=== PATIENT | male | born 1990 | race Caucasian/White ===

== ENCOUNTER 2017-12-01 20:21 | Observation (INO) | payer OTHER ==
[2017-12-01] MEDS ORDERED: Ketorolac INJ* 60 MG/2 ML VIAL ONE (20:45)
[2017-12-01] MEDS ORDERED: Ketorolac INJ* 60 MG/2 ML VIAL IM ONE (20:49)
[2017-12-01 21:48] LABS: ABS Basophils 0 10^3/ul (0-0.2); ABS Eosinophils 0 10^3/ul (0-0.6); ABS Lymphocytes 1.1 10^3/ul (1.0-4.8); ABS Monocytes 0.6 10^3/ul (0-0.8); ABS Neutrophils 8.9 10^3/ul (1.5-7.7); ABS Nucleated RBC 0 10^3/ul; Eosinophil % 0.4 % (0-6); Hematocrit 42 % (42-52); Hemoglobin 14.8 g/dl (14.0-18.0); Lymphocyte % 10.4 % (25-47); Mean Corpuscular HGB Conc 35 g/dl (31-36); Mean Corpuscular Hemoglobin 31 pg (27-31); Mean Corpuscular Volume 88 fL (80-94); Mean Platelet Volume 8.6 um3 (7.4-10.4); Nucleated Red Blood Cells % 0; Platelet Count 184 10^3/ul (150-450); Red Blood Count 4.74 10^6/ul (4.00-5.40); Red Cell Distribution Width 13 % (10.5-15); White Blood Count 10.8 10^3/ul (3.5-10.8)
[2017-12-01 22:04] LABS: EGFR Non-African American 72.5 (>60)
[2017-12-01] MEDS ORDERED: Iohexol 300* (CONTRAST) 10 ML SDV IV ONE (22:08)
--- NOTE | 2017-12-01 22:40 | ED ---
Abdominal Pain/Male - HPI Summary HPI Summary: 27 y/o male c/o severe ABD pain starting at 11:00, starting at the navel moving down to the right. Currently the pain is at a 7-8/10 Associated sx: nausea, lightheadedness, mild testicular pain, mild back pain, currently mild at a 2-3. At ED pain level at 8/10 initially, increased to 10/10 30 minutes after. Pt had a previous episode in Apr 2017 while pt was in [place]. Since that episode the pt c/o mild lower R side ABD pain intermittently, from 2-6/10 in severity. Pt states this episode is more severe than his previous. Last BM 19:50 today, solid stool. - History of Current Complaint Chief Complaint: EDAbdPain Stated Complaint: ABD PAIN/BELLY BUTTON AREA Time Seen by Provider: 12/01/17 21:55 Hx Obtained From: Patient Onset/Duration: Sudden Onset, Lasting Hours, Still Present Timing: Constant Severity Initially: Severe Severity Currently: Severe Pain Intensity: 8 Pain Scale Used: 0-10 Numeric Location: Discrete At: RLQ, Umbilical Radiates: Yes Radiates to: RLQ Aggravating Factor(s): Nothing Alleviating Factor(s): Nothing Associated Signs And Symptoms: Positive: Back Pain, Nausea, Other - lightheadedness, mildl testicular pain - Allergies/Home Medications Allergies/Adverse Reactions: Allergies Allergy/AdvReac Type Severity Reaction Status Date / Time azithromycin [From Zithromax] AdvReac Intermediate Nausea And Verified 12/01/17 20:31 Vomiting Home Medications: Home Medications Dicyclomine CAP* [Bentyl CAP*] 10 mg PO TID PRN 12/01/17 [History Confirmed 01/08] PMH/Surg Hx/FS Hx/Imm Hx Previously Healthy: No Endocrine/Hematology History: Denies: Hx Diabetes Cardiovascular History: Denies: Hx Hypertension History: Denies: Hx Renal Disease Infectious Disease History: No Infectious Disease History: Denies: Traveled Outside the [place] in Last 30 Days - Family History Known Family History: Negative: Cardiac Disease, Hypertension, Diabetes - Social History Alcohol Use: None Hx Substance Use: No Substance Use Type: Reports: None Hx Tobacco Use: No Smoking Status (MU): Never Smoked Tobacco Review of Systems Negative: Fever, Chills Negative: Erythema Negative: Sore Throat Negative: Chest Pain Negative: Shortness Of Breath, Cough Positive: Abdominal Pain, Nausea. Negative: Vomiting Positive: other - mild testicular pain. Negative: dysuria, hematuria Positive: Other - Back pain. Negative: Myalgia, Edema Negative: Rash Neurological: Other - No dizziness. Lightheadedness All Other Systems Reviewed And Are Negative: Yes Physical Exam - Summary Physical Exam Summary: Constitutional: Well-developed, Well-nourished, Alert. (-) Distressed Skin: Warm, Dry HENT: Normocephalic; Atraumatic Eyes: Conjunctiva normal Neck: Musculoskeletal ROM normal neck. (-) JVD, (-) Stridor, (-) Tracheal deviation Cardio: Rhythm regular, rate normal, Heart sounds normal; Intact distal pulses; The pedal pulses are 2+ and symmetric. Radial pulses are 2+ and symmetric. (-) Murmur Pulmonary/Chest wall: Effort normal. (-) Respiratory distress, (-) Wheezes, (-) Rales Abd: Soft, (+) RLQ Suprapubic tenderness, (-) Distension, (-) Guarding, (-) Rebound Musculoskeletal: (-) Edema Lymph: (-) Cervical adenopathy Neuro: Alert, Oriented x3 Psych: Mood and affect Normal Triage Information Reviewed: Yes Vital Signs On Initial Exam: Initial Vitals Temp Pulse Resp BP Pulse Ox 98.6 F 88 22 146/93 100 12/01/17 20:27 12/01/17 20:27 12/01/17 20:27 12/01/17 20:27 12/01/17 20:27 Vital Signs Reviewed: Yes Diagnostics - Vital Signs Vital Signs Temp Pulse Resp BP Pulse Ox 12/01/17 20:27 98.6 F 88 22 146/93 100 - Laboratory Lab Results: Lab Results 12/01/17 12/01/17 12/01/17 Range/Units 21:38 21:38 21:38 WBC 10.8 (3.5-10.8) 10^3/ul RBC 4.74 (4.00-5.40) 10^6/ul Hgb 14.8 (14.0-18.0) g/dl Hct 42 (42-52) % MCV 88 (80-94) fL MCH 31 (27-31) pg MCHC 35 (31-36) g/dl RDW 13 (10.5-15) % Plt Count 184 (150-450) 10^3/ul MPV 8.6 (7.4-10.4) um3 Neut % (Auto) 83.1 H (38-83) % Lymph % (Auto) 10.4 L (25-47) % [place] % (Auto) 5.7 (0-7) % Eos % (Auto) 0.4 (0-6) % Baso % (Auto) 0.4 (0-2) % Absolute Neuts (auto) 8.9 H (1.5-7.7) 10^3/ul Absolute Lymphs (auto) 1.1 (1.0-4.8) 10^3/ul Absolute Monos (auto) 0.6 (0-0.8) 10^3/ul Absolute Eos (auto) 0 (0-0.6) 10^3/ul Absolute Basos (auto) 0 (0-0.2) 10^3/ul Absolute Nucleated RBC 0 10^3/ul Nucleated RBC % 0 Sodium 137 (135-145) mmol/L Potassium 3.7 (3.5-5.0) mmol/L Chloride 101 (101-111) mmol/L Carbon Dioxide 27 (22-32) mmol/L Anion Gap 9 (2-11) mmol/L BUN 15 (6-24) mg/dL Creatinine 1.21 H (0.67-1.17) mg/dL Est GFR ( Amer) 87.7 (>60) Est GFR (Non-Af Amer) 72.5 (>60) BUN/Creatinine Ratio 12.4 (8-20) Glucose 124 H (70-100) mg/dL Lactic Acid 1.3 (0.5-2.0) mmol/L Calcium 10.1 (8.6-10.3) mg/dL Total Bilirubin 1.00 (0.2-1.0) mg/dL AST 20 (13-39) U/L ALT 14 (7-52) U/L Alkaline Phosphatase 82 (34-104) U/L C-Reactive Protein 1.70 (<8.01) mg/L Total Protein 7.6 (6.4-8.9) g/dL Albumin 4.7 (3.2-5.2) g/dL Globulin 2.9 (2-4) g/dL Albumin/Globulin Ratio 1.6 (1-3) Lipase 20 (11.0-82.0) U/L Result Diagrams: 12/01/17 21:38 12/01/17 21:38 Lab Statement: Any lab studies that have been ordered have been reviewed, and results considered in the medical decision making process. - CT ABD PEL CT CT Interpretation Completed By: Radiologist - 1. CT findings of early appendicitis if this is a clinical concern. ED PHYSICIAN REVIEWS AND AGREES. Re-Evaluation - Re-Evaluation 1 Re-Evaluation Time: 23:45 Comment: Informed pt of CT results Abdominal Pain Fem Course/Dx - Course Assessment/Plan: CT shows 1. CT findings of early appendicitis if this is a clinical concern. Informed Dr. Lima of pt at 23:45, who [place] [facility] [place] Diagnoses Provider Diagnoses: Appendicitis, acute Discharge - Sign-Out/Discharge Documenting (check all that apply): Patient Departure - Discharge Plan Condition: Stable Disposition: ADMITTED TO [facility] Referrals: No Primary Care Phys,NOPCP [Primary Care Provider] - - Attestation Statements Document Initiated by Scribe: Yes Documenting Scribe: Kulwinder Doty Provider For Whom Scribe is Documenting (Include Credential): Navarro Palma MD Scribe Attestation: Kulwinder Carbajal, scribed for Navarro Palma MD on 12/02/17 at 0005.
--- NOTE | 2017-12-01 23:34 | RAD ---
EXAM: CT Abdomen and Pelvis With Intravenous Contrast CLINICAL HISTORY: 27 years old, male; Pain; Abdominal pain; Localized; Lower; Additional info: Pt C/O of mid to right abd. Pain. Pt stated that this has happened once before in 2017. (while in [place]) pt pt seen by pcp for this pain with much testing. Pt denies v/d but has nausea. TECHNIQUE: Axial computed tomography images of the abdomen and pelvis with intravenous contrast. All CT scans at this facility use at least one of these dose optimization techniques: automated exposure control; mA and/or kV adjustment per patient size (includes targeted exams where dose is matched to clinical indication); or iterative reconstruction. Coronal and sagittal reformatted images were created and reviewed. CONTRAST: 100 mL of OMNI 300 administered intravenously. COMPARISON: No relevant prior studies available. FINDINGS: Lung bases: Unremarkable. No mass. No consolidation. ABDOMEN: Liver: Unremarkable. No mass. Gallbladder and bile ducts: Unremarkable. No calcified stones. No ductal dilation. Pancreas: Unremarkable. No mass. No ductal dilation. Spleen: Unremarkable. No splenomegaly. Adrenals: Unremarkable. No mass. Kidneys and ureters: Nonobstructing renal stones bilaterally. Stomach and bowel: Unremarkable. No obstruction. No mucosal thickening. PELVIS: Appendix: The appendix is mildly dilated at 8 mm containing fluid and a small appendicolith. No inflammatory changes are present in the adjacent mesentery. Bladder: Unremarkable. No mass. Reproductive: Unremarkable as visualized. ABDOMEN and PELVIS: Intraperitoneal space: Unremarkable. No free air. No significant fluid collection. Bones/joints: No acute fracture. No dislocation. Soft tissues: Unremarkable. Vasculature: Unremarkable. No abdominal aortic aneurysm. Lymph nodes: Unremarkable. No enlarged lymph nodes. IMPRESSION: 1. CT findings of early appendicitis if this is a clinical concern.
[2017-12-01] MEDS ORDERED: ceFOXitin 2 GM IVPREMIX* 2 GM/50 ML BAG IVPB ONE (23:38)
[2017-12-01] MEDS ORDERED: Morphine VIAL* 10 MG/ML 1 ML VIAL IV ONE (23:43)
[2017-12-02 00:15] LABS: Urine Appearance Clear; Urine Blood Negative (Negative); Urine Color Straw; Urine Ketones Trace (Negative); Urine Protein Negative (Negative); Urine Specific Gravity 1.028 (1.010-1.030); Urine Urobilinogen Negative (Negative)
[2017-12-02] MEDS ORDERED: NS 0.9% 1000 ML* 1,000 ML IV ONE (00:17)
[2017-12-02] MEDS ORDERED: Metoclopramide IV* 5 MG/ML 2 ML VIAL IV PRN (00:18)
[2017-12-02] MEDS ORDERED: Morphine INJ* 2 MG/ML 1 ML SYRINGE (TWO MG - NEW SYRINGE VERSION) IV PRN ×2 (00:18→11:54)
[2017-12-02] MEDS ORDERED: Ketorolac INJ* 30 MG/ML 1 ML VIAL IV PRN (01:57)
[2017-12-02] MEDS ORDERED: NS 0.9% 1000 ML* 1,000 ML IV SCH (02:00)
[2017-12-02] MEDS: ZOSYN 3.375 GM Q6H - Intermittant 30 min Infusion IVPB SCH ×4 (02:34→07:56)
[2017-12-02] MEDS ORDERED: Ropivacaine* 2 MG/ML 20 ML VIAL (0.2%) ONE (11:25)
[2017-12-02] MEDS ORDERED: Midazolam* 1 MG/ML 5 ML VIAL (5 MG) ONE (11:38)
[2017-12-02] MEDS ORDERED: fentaNYL* 50 MCG/ML 2 ML VIAL (100 MCG VIAL) ONE ×2 (11:38→13:32)
[2017-12-02] MEDS ORDERED: KETAMINE HCL* 50 MG/ML 10 ML VIAL ONE (11:38)
[2017-12-02] MEDS ORDERED: Atracurium* 10 MG/ML 10 ML VIAL ONE (11:38)
[2017-12-02] MEDS ORDERED: Naloxone* 0.4 MG/ML 1 ML VIAL IV PRN (11:54)
[2017-12-02] MEDS ORDERED: DiMENhydriNATE IV* 50 MG/ML VIAL IV PUSH PRN (11:54)
[2017-12-02] MEDS ORDERED: PROCHLORPERAZINE INJ 5 MG/ML 2 ML VIAL IV PRN (11:54)
[2017-12-02] MEDS ORDERED: Acetaminophen IV 1GM/100ML * 1,000 MG/100 ML VIAL IVPB ONE (11:54)
--- NOTE | 2017-12-02 12:02 | HP ---
DATE OF ADMISSION: 12/01/2017. ATTENDING SURGEON: Dr. Nicholas Lima* (WILDER Nichole dictating). CHIEF COMPLAINT: Abdominal pain. HISTORY OF PRESENT ILLNESS: This is a 27-year-old male who in early April, while in [place] working for the [employer], noted right lower quadrant pain [place]. He was told at that time that they did not feel that it represented acute appendicitis. He was treated with medication , including antibiotics, but continued to have ongoing low level 2 to 4/10 pain since that time, both while still in [place] and upon return to the [facility]. He has been using Bentyl since that time which helps somewhat. Beginning yesterday , 12/01/2017, at around 11:00 a.m. he began to experience periumbilical pain which increased through the day and in the evening had localized more to the right lower quadrant. It had also increased to approximately an 8/10 level and he presented to the ED. The pain was sharp and steady, but with occasional waves of additional pain. It was associated with nausea and one episode of vomiting. No hematemesis. His last bowel movement was last evening and described as soft, but otherwise normal. He has been anorexic. Both in [place] and upon return to [place], he underwent multiple testing, including EGD and colonoscopy, lab work, and what sounded like stool for ova and parasites. This was all apparently unrevealing. 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 PAST MEDICAL HISTORY: Asthma (no recent exacerbations). He has likely also had various tropical diseases, including possibly Dengue fever last summer. PAST SURGICAL HISTORY: Pyloromyotomy for pyloric stenosis. CURRENT MEDICATIONS: 1. Bentyl 10 mg b.i.d. and occasionally prn. 2. Albuterol inhaler prn (has not required recently). 3. Flovent inhaler prn (has not required recently). ALLERGIES: AZITHROMYCIN (GI SIDE EFFECTS). FAMILY HISTORY: Negative for anesthesia problems, bleeding or clotting disorders. Positive for ulcerative colitis in an uncle and cousin. SOCIAL HISTORY: The patient is a PhD student at [employer]. He denies the use of tobacco. He has not had any alcohol since May. He denies any other recreational drug use. REVIEW OF SYSTEMS: General: No recent constitutional symptoms or acute illnesses other than described in the HPI. HEENT: No problems reported. Cardiovascular: No chest pain or palpitations. Respiratory: No shortness of breath or cough. GI: As above per HPI, no additions. : Possibly slight increased frequency of urination, otherwise no concerning symptoms. He has had some what appears to be referred pain to the right testicle and he believes he was told he might have an inguinal hernia, though he does not sound sure. Endocrine: No diabetes or thyroid dysfunction. PHYSICAL EXAMINATION GENERAL: Well-nourished, well-developed male in no acute distress. He actually appears quite comfortable lying on the bed and talking, though does have one paroxysm of pain during our interview during which he rolls up on his side. SKIN: Warm and dry, no suspicious rashes or lesions. VITAL SIGNS: Height 5'10", weight 170 pounds. Temperature 98.7, blood pressure 102/48, pulse 79, respirations 16, room air saturation 98 percent. HEENT: Pupils equal and round, reactive. EOM's intact. No conjunctival pallor or scleral icterus. Oropharynx: Teeth in good repair. Mucus membranes moist. No intraoral lesions. NECK: No lymphadenopathy, thyromegaly, or masses. LUNGS: Clear to auscultation. No rales or wheezes. HEART: Regular rate and rhythm, no murmur noted. ABDOMEN: Flat, nondistended, well-healed right mid abdominal surgical incision from prior pyloromyotomy. There is also left upper quadrant incision from prior skin lesion removal. Bowel sounds are present and fairly normal. Abdomen is soft, though with tenderness pretty much throughout the lower abdomen , but especially the right lower quadrant there is in exquisite tenderness, though without guarding, mass, or rebound. There does seem to be some referred tenderness. No palpable inguinal hernias, though the right groin is somewhat tender. The testi was not examined directly. EXTREMITIES: No edema. RECTAL: Not done. NEUROLOGIC: Grossly intact. LABORATORY DATA: White blood cell count 10.8, hemoglobin 14.8, there is a left shift; CRP is normal at 1.7, creatinine is mildly elevated at 1.21, lactic acid is normal at 1.3. Remaining chemistries are essentially normal. Urinalysis was normal other than trace ketones. CT of the abdomen and pelvis with IV contrast only shows a mildly dilated appendix measured at 8 mm containing fluid and a small appendicolith. There were no surrounding inflammatory changes. IMPRESSION: Possible chronic appendicitis with acute exacerbation. PLAN: The patient was seen also by Dr. Willis who recommended laparoscopic appendectomy. The patient is in agreement to proceed. WILDER NICHOLE [id number]/[facility] #: [id number] [facility]IAL HOSPITALRick
[2017-12-02] MEDS ORDERED: ceFOXitin(*) 1 GM VIAL ONE (12:36)
[2017-12-02] MEDS ORDERED: Famotidine IV* 10 MG/ML 2 ML (20 mg) ONE (12:42)
[2017-12-02] MEDS ORDERED: Dexamethasone IV* 4 MG/ML 1 ML (4 MG) ONE (12:42)
[2017-12-02] MEDS ORDERED: Ondansetron INJ* 2 MG/ML VIAL ONE (12:42)
[2017-12-02] MEDS ORDERED: Propofol* 10 MG/ML 20 ML BTL IV PUSH ONE (12:42)
--- NOTE | 2017-12-02 12:54 | OP ---
Operative Report - Blank - Operative Report Date of Operation: 12/02/17 Note: Brief Operative Note Preop Dx: Acute appendicitis Postop Dx: same Procedure: Laparoscopic appendectomy Anesthesia: GET Surgeon: Lazaro Hemodialysis Lab Technician: BLADE Schreiber Fluids: 1000 ml RL EBL: none Specimen: appendix Drains: none Findings: dictated
[2017-12-02] MEDS ORDERED: Ketorolac INJ* 30 MG/ML 1 ML VIAL ONE (13:00)
[2017-12-02] MEDS ORDERED: Glycopyrrolate IV* 0.2 MG/ML 1 ML VIAL ONE (13:01)
[2017-12-02] MEDS ORDERED: Lidocaine 2% PF * 5 ML VIAL ONE (13:01)
[2017-12-02] MEDS ORDERED: Neostigmine Methylsulfate* 1 MG/ML 10 ML VIAL (1 mg/ml) ONE (13:01)
[2017-12-02] MEDS ORDERED: Acetaminophen IV 1GM/100ML * 100 ML ONE (13:25)
[2017-12-02] MEDS ORDERED: PROCHLORPERAZINE INJ 5 MG/ML 2 ML VIAL ONE (13:32)
[2017-12-02] MEDS: fentaNYL* 50 MCG/ML 2 ML VIAL (100 MCG VIAL) IV PRN ×2 (13:35→13:45)
[2017-12-02 15:43] VITALS: BP 108/65
[2017-12-02] MEDS ORDERED: oxyCODONE/Acetamin 5/325 MG* TAB ONE (15:52)
--- NOTE | 2017-12-03 00:31 | OP ---
CC: [facility] OPERATIVE REPORT: DATE OF OPERATION: 12/02/17 DATE OF : 89 SURGEON: Ruben Willis MD MEMBER OF CONGRESS: None. ANESTHESIOLOGIST: Kashif Aguilera MD ANESTHESIA: General endotracheal. PRE-OP DIAGNOSIS: Acute appendicitis. POST-OP DIAGNOSIS: Acute appendicitis. OPERATIVE PROCEDURE: Laparoscopic appendectomy. ESTIMATED BLOOD LOSS: Minimal. IV FLUIDS: Crystalloid. SPECIMEN: Appendix. DRAIN: None. COMPLICATIONS: None. COUNTS: Instrument, needle, and sponge counts were correct. OPERATIVE FINDINGS: Appendix with evidence of chronic scarring/inflammation and acute appendicitis. Normal-appearing distal ileum and colon. DESCRIPTION OF PROCEDURE: The patient was brought to the operating room and placed on the table supi ne. Sequential compression devices were placed in both lower extremities. General anesthesia was ad ministered. He was positioned and padded appropriately and then he was prepped and draped in the usu al sterile fashion. He received intravenous antibiotics. Time-out was performed. Local anesthetic was infiltrated into the skin and soft tissue prior to making each incision. Entry to the abdomen was through a transumbilical incision using an open technique. He was noted to have a small umbilical hernia defect. The defect was enlarged to accommodate a 12 mm trocar and then carbo n dioxide was insufflated through the trocar to inflate the abdomen to 15 mmHg. Under direct visuali zation, 5 mm trocars were placed in the suprapubic midline and left lower quadrant. Inspection reveal ed no evidence of adhesions within the abdominal cavity. Grossly the liver appeared normal as did th e gallbladder. The cecum appeared normal. The appendix was elevated from the pelvis and he had tricia y acute inflammatory changes as long as distal one half to two thirds. There was an adhesion of the appendix mesentery to adjacent small bowel mesentery that was lysed sharply. The appendix was elevat ed and a window created in the base of the appendix mesentery and then the appendix was divided from the cecum using EndoGIA stapler with newell cartridge. The mesentery of the appendix was divided with En doGIA stapler with amezcua cartridge. Appendix was placed through a retrieval bag and removed through th e umbilical site. The staple lines were noted to be intact and hemostatic. The small bowel was run p roximally for a distance of about 3.5 feet and this appeared normal without any dilation or inflammat ory changes. The cecum was inspected. It was perfectly normal as was the ascending colon and transv erse colon. Inspection of the pelvis revealed no evidence of inguinal hernias and there was no infla mmatory changes in the pelvis. At this point, the ports removed under direct visualization. Carbon dioxide was released. The umbilical hernia was repaired with interrupted 0 Vicryl sutures after sonido ring the fascial edges back to healthy fascia. The umbilical stalk was reapproximated to the midline with 3-0 Vicryl and then the skin edges were reapproximated with 4-0 Monocryl. 4-0 Monocryl was als o used to close the 2 remaining skin incisions and DermaFlex were applied at all the sites. The césar ent tolerated the procedure well, was extubated, and transferred to recovery room in stable condition . [id number]/[facility] #: [id number]
== END 2017-12-02 16:15 | disposition home or self-care (01) ==
LOC: ED 20:21 → INTOOBSV 23:47 → SSU 23:47
PROVIDERS: ADMIT Surgery; ATTEND Surgery
PROC: 0DTJ4ZZ Resection of Appendix, Percutaneous Endoscopic Approach (ICD-10-PCS; principal; 2017-12-01)
DX: K35.89 Other acute appendicitis (principal); Z23 Encounter for immunization; Z88.1 Allergy status to other antibiotic agents
CPT/HCPCS: 36415; 74177; 80053; 81003; 83605; 83690; 85025; 86140; 88304; 90471; 90686; 96372; 96374; 99284; A9270-GY; C1776; G0008; G0378; J0694; J0780; J1100; J1885; J2250; J2270; J2405; J2543; J2704; J2710; J2795; J3010; Q9967